=== PATIENT | male | born 1990 | race Caucasian/White ===

== ENCOUNTER 2017-03-12 13:59 | Emergency (ER) | payer MEDICAID ==
[~2017-03-12] VITALS: Ht 167.6 cm; Wt 69.9 kg
[~2017-03-12 13:59] MED LIST: HAL5T PO; OLAN20TA17 PO
[2017-03-12 14:44] VITALS: BP 136/74
[2017-03-12] MEDS ORDERED: KETOROLAC TROMETH 60MG/2ML VIAL IM ONE (15:00)
== END 2017-03-12 15:18 | disposition home or self-care (01) ==
LOC: ER 13:59
DX: S39.012A Strain of muscle, fascia and tendon of lower back, initial encounter (principal); Z79.899 Other long term (current) drug therapy; X50.9XXA Other and unspecified overexertion or strenuous movements or postures, initial encounter; Y93.89 Activity, other specified; Y92.89 Other specified places as the place of occurrence of the external cause; Y99.8 Other external cause status
CPT/HCPCS: 96372; 99283; J1885

== ENCOUNTER 2017-04-06 14:26 | Emergency (ER) | payer MEDICAID ==
[~2017-04-06] VITALS: Ht 167.6 cm; Wt 55.8 kg
[2017-04-06 14:49] LABS: Basophils # (auto) 0 uL; Eosinophils # (auto) 0.1 uL; Lymphocytes # (auto) 2.1 uL; Monocytes # (auto) 0.5 uL; Nucleated Red Blood Cells % 0.2 %
[2017-04-06 14:52] LABS: Basophils % (auto) 0.5 % (0.0-2.0); Eosinophils % (auto) 1.6 % (0.0-7.0); Hematocrit 48.3 % (41.0-53.0); Hemoglobin 16.1 g/dL (13.5-17.5); Lymphocytes % (auto) 31.7 % (10.0-50.0); Mean Corpuscular Hemoglobin 25.2 pg (28.0-32.0); Mean Corpuscular Hgb Conc. 33.3 g/dL (32.0-36.0); Mean Corpuscular Volume 75.6 fL (80.0-100.0); Mean Platelet Volume 8.2 fL (6.9-10.8); Monocytes % (auto) 8.1 % (0.0-12.0); Neutrophils # (auto) 3.8 uL; Neutrophils % (auto) 58.1 % (37.0-80.0); Platelet Count (auto) 203 10^3/uL (140-450); Red Cell Distribution Width 14.5 % (11.8-14.3); White Blood Cell 6.5 10^3/uL (4.4-10.8)
[2017-04-06] MEDS ORDERED: SODIUM CHLORIDE 0.9% 1,000 ML IV ONE (14:57)
[2017-04-06 15:10] LABS: Albumin 4.2 g/dL (3.4-5.0); BUN/Creatinine Ratio 11.8; Bilirubin, Total 0.4 mg/dL (0.2-1.0); Calcium 9.2 mg/dL (8.5-10.1); Potassium 4.1 mmol/L (3.5-5.1); Total Protein 7.8 g/dL (6.4-8.2)
[2017-04-06 15:20] LABS: INR 1.11 (0.9-1.15); Partial Thromboplastin Time 29.3 sec (22.64-33.71); Prothrombin Time 12.1 sec (9.37-12.3)
[2017-04-06 15:22] VITALS: BP 127/63
== END 2017-04-06 16:05 | disposition home or self-care (01) ==
LOC: ER 14:26 → EDBD 14:26 → ER 16:04
DX: R42 Dizziness and giddiness (principal); R53.1 Weakness; R10.9 Unspecified abdominal pain; J45.909 Unspecified asthma, uncomplicated
CPT/HCPCS: 36415; 71010; 80053; 83735; 85025; 85610; 85730; 93005; 94761; 96360; 99285; J7030

== ENCOUNTER 2017-04-23 15:33 | Emergency (ER) | payer MEDICAID ==
[~2017-04-23] VITALS: Ht 165.1 cm; Wt 55.8 kg
[2017-04-23 15:54] VITALS: BP 118/80
[2017-04-23 16:39] LABS: Basophils # (auto) 0 uL; Eosinophils # (auto) 0.1 uL; Hemoglobin 15.8 g/dL (13.5-17.5); Monocytes # (auto) 0.5 uL; Nucleated Red Blood Cells % 0.1 %; Red Cell Distribution Width 14.7 % (11.8-14.3); White Blood Cell 5.7 10^3/uL (4.4-10.8)
[2017-04-23 16:41] LABS: Basophils % (auto) 0.5 % (0.0-2.0); Eosinophils % (auto) 2.3 % (0.0-7.0); Hematocrit 47.5 % (41.0-53.0); Lymphocytes # (auto) 1.7 uL; Lymphocytes % (auto) 29.7 % (10.0-50.0); Mean Corpuscular Hemoglobin 25.1 pg (28.0-32.0); Mean Corpuscular Hgb Conc. 33.3 g/dL (32.0-36.0); Mean Corpuscular Volume 75.5 fL (80.0-100.0); Mean Platelet Volume 8.4 fL (6.9-10.8); Monocytes % (auto) 8.2 % (0.0-12.0); Neutrophils # (auto) 3.4 uL; Neutrophils % (auto) 59.3 % (37.0-80.0); Platelet Count (auto) 214 10^3/uL (140-450)
[2017-04-23 16:43] LABS: Albumin 4.1 g/dL (3.4-5.0); BUN/Creatinine Ratio 12.5; Bilirubin, Total 0.5 mg/dL (0.2-1.0); Calcium 9.3 mg/dL (8.5-10.1); Potassium 3.9 mmol/L (3.5-5.1); Total Protein 7.7 g/dL (6.4-8.2)
[2017-04-23 17:58] LABS: Urine RBC None Seen /hpf (0 - 3)
[2017-04-23 18:11] LABS: Urine Bilirubin Negative (Negative); Urine Blood Negative /uL (Negative); Urine Color Yellow (Yellow); Urine Glucose Normal (Normal); Urine Ketone TRACE (Negative); Urine Mucus FEW (None Seen); Urine Nitrite Negative (Negative); Urine Squamous Epithelial Cell FEW /hpf (<5); Urine Urobilinogen Normal (Negative)
== END 2017-04-24 00:52 | disposition left against medical advice (07) ==
LOC: ER 15:38
DX: R53.1 Weakness (principal); Z53.21 Procedure and treatment not carried out due to patient leaving prior to being seen by health care provider
CPT/HCPCS: 36415; 71020; 80053; 81001; 85025

== ENCOUNTER 2023-07-27 11:47 | Emergency (ER) | payer MEDICAID ==
[~2023-07-27] VITALS: Ht 165.1 cm; Wt 81.8 kg
[~2023-07-27 11:47] MED LIST changes: -OLAN20TA17 PO; +OLAN20TA30 PO
[2023-07-27 13:29] VITALS: BP 128/91; PULSE 76; RESP 16; TEMP 97.8; O2SAT 95
[2023-07-27] MEDS ORDERED: TETANUS-DIPTH-ACEL PERTUSSIS 0.5ML SYR Tdap IM ONE (14:15)
== END 2023-07-27 14:43 | disposition home or self-care (01) ==
LOC: ER 11:47
DX: S91.114A Laceration without foreign body of right lesser toe(s) without damage to nail, initial encounter (principal); J45.909 Unspecified asthma, uncomplicated; X58.XXXA Exposure to other specified factors, initial encounter; Y93.89 Activity, other specified; Y92.89 Other specified places as the place of occurrence of the external cause; Y99.8 Other external cause status
CPT/HCPCS: 90471; 90715

== ENCOUNTER 2024-02-04 18:46 | Emergency (ER) | payer MEDICAID ==
[~2024-02-04] VITALS: Ht 175.3 cm; Wt 86.4 kg
[2024-02-04 21:07] VITALS: BP 123/91; PULSE 76; RESP 18; TEMP 98.2; O2SAT 95
== END 2024-02-04 21:52 | disposition home or self-care (01) ==
LOC: ER 18:46
DX: S62.615A Displaced fracture of proximal phalanx of left ring finger, initial encounter for closed fracture (principal); F41.9 Anxiety disorder, unspecified; F32.9 Major depressive disorder, single episode, unspecified; J45.909 Unspecified asthma, uncomplicated; F20.9 Schizophrenia, unspecified; Z79.899 Other long term (current) drug therapy; W01.0XXA Fall on same level from slipping, tripping and stumbling without subsequent striking against object, initial encounter; Y93.89 Activity, other specified; Y92.89 Other specified places as the place of occurrence of the external cause; Y99.8 Other external cause status
CPT/HCPCS: 29130; 73140